=== PATIENT | female | born 1985 | race African-American/Black ===

== ENCOUNTER 2018-12-11 12:29 | Outpatient (CLI) | payer OTHER ==
[~2018-12-11 12:29] MED LIST: FERRIC CARBOXYMALTOSE 750 MG in NORMAL SALINE 250 ML IV PRN; NORMAL SALINE 250 ML IV PRN
[2018-12-11 12:47] VITALS: BP 133/98
== END 2018-12-11 14:30 | disposition home or self-care (01) ==
LOC: II 12:29 → 5TH 13:18 → II 14:30
PROVIDERS: ATTEND Internal Medicine Hematology & Oncology
PROC: 3E033GC Introduction of Other Therapeutic Substance into Peripheral Vein, Percutaneous Approach (ICD-10-PCS; principal; 2018-12-11)
DX: D50.9 Iron deficiency anemia, unspecified (principal); K90.9 Intestinal malabsorption, unspecified
CPT/HCPCS: 96367; J7050; J1439; 96365

== ENCOUNTER 2018-12-18 12:53 | Outpatient (CLI) | payer OTHER ==
[2018-12-18 13:17] VITALS: BP 130/77
== END 2018-12-18 15:15 | disposition home or self-care (01) ==
LOC: II 12:53 → 5TH 12:55 → II 15:15
PROVIDERS: ATTEND Internal Medicine Hematology & Oncology
PROC: 3E033GC Introduction of Other Therapeutic Substance into Peripheral Vein, Percutaneous Approach (ICD-10-PCS; principal; 2018-12-18)
DX: D50.9 Iron deficiency anemia, unspecified (principal); K90.9 Intestinal malabsorption, unspecified
CPT/HCPCS: 96367; J7050; J1439; 96365

== ENCOUNTER 2020-09-16 15:57 | Outpatient (CLI) | payer OTHER, MEDICAID ==
[2020-09-16] MEDS ORDERED: RINGERS SOLUTION,LACTATED 1,000 ML IV ONE (16:29)
[2020-09-16] MEDS ORDERED: RINGERS SOLUTION,LACTATED 1,000 ML IV PRN (16:29)
[2020-09-16] MEDS ORDERED: HYDROXYZINE PAMOATE 50 MG CAPSULE PO ONE (16:30)
[2020-09-16] MEDS ORDERED: HYDROXYZINE PAMOATE 50 MG CAPSULE ONE (18:03)
[2020-09-16 18:21] LABS: APPEARANCE,URINE CLEAR; BILIRUBIN,URINE NEGATIVE (NEGATIVE); COLOR,URINE YELLOW; GLUCOSE, URINE NEGATIVE (NEGATIVE); KETONES,URINE NEGATIVE (NEGATIVE); LEUKOCYTE ESTERASE,URINE NEGATIVE (NEGATIVE); NITRITE,URINE NEGATIVE (NEGATIVE); PROTEIN,URINE NEGATIVE (NEGATIVE); UROBILINOGEN,URINE NEGATIVE mg/dL (<2.0)
[2020-09-16 18:43] LABS: URINE AMPHETAMINES SCREEN NEGATIVE; URINE BARBITURATES SCREEN NEGATIVE; URINE BENZODIAZEPINES SCREEN NEGATIVE; URINE COCAINE SCREEN NEGATIVE; URINE MARIJUANA (THC) SCREEN NEGATIVE; URINE METHADONE SCREEN NEGATIVE; URINE PHENCYCLIDINE SCREEN NEGATIVE
[2020-09-16] MEDS ORDERED: BETAMET ACET/BETAMET NA INJ 6 MG/1 ML IM SCH (19:15)
[2020-09-16] MEDS ORDERED: BETAMET ACET/BETAMET NA INJ 6 MG/1 ML ONE (19:22)
[2020-09-16] MEDS ORDERED: NIFEDIPINE 30 MG TAB.ER.24 PO ONE (20:10)
--- NOTE | 2020-09-16 20:21 | RADIOLOGY REPORT (SQ) ---
NAME: JUAN MANUEL LONDONCHRISTYSHARI PROCEDURE: US BIOPHYSICAL PROFILE WITHOUT NON STRESS TEST ORDER DATE: 09/16/2020 5:11 PM ETL LEAD ACCESSION NUMBER: [id number] CLINICAL HISTORY and INDICATION: Gestational age of 33 weeks and six days. COMPARISON: None. TECHNIQUE: Transabdominal ultrasound of the pelvis with attention to the intrauterine was performed. FINDINGS: There is a single, viable intrauterine . presentation is cephalic. The placenta is anterior. Measured heart rate is 133 beats per minute. There is adequate amnionic fluid. Measured amniotic index is 14.5 cm. Biophysical profile was 8 out of 8: tone = 2 movement = 2 Amniotic fluid (single pocket > 2 cm in 2 perpendicular planes)= 2 breathing = 2 IMPRESSION: Biophysical profile, 8 out of 8. Single viable intrauterine . Cervical length is 4.8 cm.
[2020-09-16] MEDS ORDERED: NIFEDIPINE 30 MG TAB.ER.24 PO SCH (21:00)
--- NOTE | 2020-09-16 22:09 | Non Stress Test Report ---
Non Stress Test Datetime Report Generated by CPN: 09/16/2020 22:09 DEMOGRAPHIC Test Number: 1 EGA NST: 33.6 INDICATION Indication for Study (NST) Other: NR NST in office. Repeat NST VITAL SIGNS Temperature - NST: 97.8 Pulse - NST: 87 RESP - NST: 16 NBPSYS NST: 122 NBPDIA NST: 70 MONITORING Monitor Explained: Monitor Explained; Test Explained; Patient Verbalized Understanding Time on Monitor: 09/16/2020 16:18 Time off Monitor: 09/16/2020 21:37 NST Duration: 319 NST INTERVENTIONS NST Interventions: PO Hydration; Reposition Patient; For Biophysical Profile Physician Notified NST: Dr. Cartwright BABY A: [id number] BABY A Movement : Present Contraction Frequency : 3-5 FHR Baseline : 135 Accelerations : 15X15 Decelerations : None Variability : Moderate 6-25bpm NST Review: Questionable if Meets Criteria for Reactive NST NST Review and Verified By : Jazmyne Kirk, RN NST Results: Questionable NST COMMENTS NST Comments: BPP 8/8, Dr. Cartwright on unit reviewed strip multiple times NST REPORT Report Trigger: Send Report
== END 2020-09-16 22:03 | disposition home or self-care (01) ==
LOC: LC 15:57
PROVIDERS: ATTEND Obstetrics & Gynecology
DX: O60.03 Preterm labor without delivery, third trimester (principal); O09.523 Supervision of elderly multigravida, third trimester; Z3A.33 33 weeks gestation of pregnancy; Z88.6 Allergy status to analgesic agent
CPT/HCPCS: 59025; 81001; 80307; 76819; J0702

== ENCOUNTER 2020-09-17 19:33 | Outpatient (CLI) | payer OTHER, MEDICAID ==
[2020-09-17] MEDS ORDERED: BETAMET ACET/BETAMET NA INJ 6 MG/1 ML ONE (19:38)
[2020-09-17] MEDS ORDERED: BETAMET ACET/BETAMET NA INJ 6 MG/1 ML IM ONE (19:41)
== END 2020-09-17 19:46 | disposition home or self-care (01) ==
LOC: LC 19:33
PROVIDERS: ATTEND Student in an Organized Health Care Education/Training Program
DX: O60.03 Preterm labor without delivery, third trimester (principal); O09.523 Supervision of elderly multigravida, third trimester; Z3A.33 33 weeks gestation of pregnancy; Z88.6 Allergy status to analgesic agent
CPT/HCPCS: 59025; 96372; J0702

== ENCOUNTER 2020-09-27 10:46 | Outpatient (CLI) | payer OTHER, MEDICAID ==
--- NOTE | 2020-09-27 12:11 | Non Stress Test Report ---
Non Stress Test Datetime Report Generated by CPN: 09/27/2020 12:10 DEMOGRAPHIC EGA NST: 35.3 INDICATION Indication for Study (NST) Other: Repeat NST WHA MONITORING Monitor Explained: Monitor Explained; Test Explained; Patient Verbalized Understanding Time on Monitor: 09/27/2020 10:56 Time off Monitor: 09/27/2020 11:51 NST Duration: 55 NST INTERVENTIONS Physician Notified NST: Dr Cartwright/N Rocha CNM BABY A: [id number] BABY A Movement : Present Contraction Frequency : 0 FHR Baseline : 135 Accelerations : 15X15 Decelerations : None Variability : Moderate 6-25bpm NST Review: Meets Criteria for Reactive NST NST Review and Verified By : Susan Camp RNC NST Results: Reactive NST REPORT Report Trigger: Send Report
== END 2020-09-27 11:57 | disposition home or self-care (01) ==
LOC: LC 10:46
PROVIDERS: ATTEND Obstetrics & Gynecology
DX: Z34.83 Encounter for supervision of other normal pregnancy, third trimester (principal); Z3A.35 35 weeks gestation of pregnancy
CPT/HCPCS: 59025

== ENCOUNTER 2020-10-09 08:00 | Outpatient (CLI) | payer OTHER, MEDICAID ==
[2020-10-09 09:12] LABS: 24 HOUR URINE PROTEIN RESULT 182 mg/day (42-225); URINE PROTEIN 9.5 mg/dL (<12)
== END 2020-10-09 10:00 | disposition home or self-care (01) ==
LOC: LC 08:00
PROVIDERS: ATTEND Obstetrics & Gynecology
DX: O16.3 Unspecified maternal hypertension, third trimester (principal); Z3A.37 37 weeks gestation of pregnancy
CPT/HCPCS: 59025; 84156

== ENCOUNTER 2020-10-13 14:44 | Outpatient (CLI) | payer OTHER, MEDICAID ==
--- NOTE | 2020-10-13 15:04 | Non Stress Test Report ---
Non Stress Test Datetime Report Generated by CPN: 10/13/2020 15:03 DEMOGRAPHIC EGA NST: 37.1 INDICATION Indication for Study (NST) Other: labor check VITAL SIGNS Temperature - NST: 98.5 Pulse - NST: 80 RESP - NST: 16 NBPSYS NST: 137 NBPDIA NST: 76 MONITORING Monitor Explained: Monitor Explained; Test Explained; Patient Verbalized Understanding Time on Monitor: 10/09/2020 09:27 Time off Monitor: 10/09/2020 09:58 NST Duration: 31 NST INTERVENTIONS NST Interventions: None Physician Notified NST: Dr Cartwright BABY A: [id number] BABY A Movement : Present Contraction Frequency : none FHR Baseline : 135 Accelerations : 15X15 Decelerations : None Variability : Moderate 6-25bpm NST Review: Meets Criteria for Reactive NST NST Review: Meets Criteria for Reactive NST NST Review and Verified By : Emely Orlando RN NST Results: Reactive NST Results: Reactive NST REPORT Report Trigger: Send Report
--- NOTE | 2020-10-13 17:27 | RADIOLOGY REPORT (SQ) ---
EXAM DESCRIPTION: U/S PROFILE W/O STRESS IMAGES COMPLETED DATE/TIME: 10/13/2020 5:11 pm REASON FOR STUDY: noreactive NST COMPARISON: None. TECHNIQUE: Limited swanson-scale realtime and static images of the fetus to measure specified parameter s. LIMITATIONS: None. FINDINGS: HEART RATE: 128 beats per minute. SHABANA: 15 point to cm. MVP: 5.5 cm. BREATHING MOVEMENT: 2 points. MOVEMENT: 2 points. POSTURE AND TONE: 2 points. QUALITATIVE SHABANA: 2 points. OTHER: No other significant finding. IMPRESSION: BIOPHYSICAL PROFILE: 06/05. Trimester of : Third - 28 weeks to delivery COMMENT: BREATHING MOVEMENTS: 2 POINTS: PRESENT 0 POINTS: ABSENT MOTION: 2 POINTS: PRESENT 0 POINTS: ABSENT TONE: 2 POINTS: PRESENT 0 POINTS: ABSENT AMNIOTIC FLUID VOLUME: 2 POINTS: LARGEST POCKET GREATER THAN 2 CM DEPTH. 0 POINTS: NO POCKET OF 2 CM. TECHNICAL DOCUMENTATION: JOB ID: [id number] 2010 [employer]- All Rights Reserved Reading location - IP/workstation name: [email or web address]
== END 2020-10-13 18:01 | disposition home or self-care (01) ==
LOC: LC 14:44
PROVIDERS: ATTEND Obstetrics & Gynecology
DX: O09.523 Supervision of elderly multigravida, third trimester (principal); Z3A.37 37 weeks gestation of pregnancy; Z88.6 Allergy status to analgesic agent; Z91.018 Allergy to other foods
CPT/HCPCS: 59025; 76819

== ENCOUNTER 2020-10-15 04:53 | Inpatient (IN) | payer OTHER, MEDICAID ==
[2020-10-15 05:51] LABS: APPEARANCE,URINE SLIGHTLY-CLOUDY; BILIRUBIN,URINE NEGATIVE (NEGATIVE); COLOR,URINE YELLOW; GLUCOSE, URINE NEGATIVE (NEGATIVE); KETONES,URINE NEGATIVE (NEGATIVE); LEUKOCYTE ESTERASE,URINE NEGATIVE (NEGATIVE); NITRITE,URINE NEGATIVE (NEGATIVE); PROTEIN,URINE NEGATIVE (NEGATIVE); URINE SPECIFIC GRAVITY 1.013; UROBILINOGEN,URINE NEGATIVE mg/dL (<2.0)
[2020-10-15] MEDS ORDERED: CEFAZOLIN 2 GM/D5W RTU 2 GM/50 ML RTUPB IV PRN (06:03)
[2020-10-15 06:05] LABS: ABSOLUTE BASOPHILS # (AUTO) 0.1 10^3/uL (0.0-0.2); ABSOLUTE EOSINOPHILS # (AUTO) 0.1 10^3/uL (0.0-0.6); ABSOLUTE LYMPHOCYTES (AUTO) 2.4 10^3/uL (0.5-4.7); ABSOLUTE MONOCYTES (AUTO) 0.7 10^3/uL (0.1-1.4); ABSOLUTE NEUT (AUTO) 4.9 10^3/uL (1.7-8.2); BASOPHILS % (AUTO) 1.1 % (0-2); EOSINOPHILS % (AUTO) 1.1 % (0-6); HEMATOCRIT 27.4 % (36.0-47.0); HEMOGLOBIN 9.2 g/dL (12.0-15.5); LYMPHOCYTES % (AUTO) 29.1 % (13-45); MEAN CORPUSCULAR HEMOGLOBIN 23.4 pg (27.0-33.4); MEAN CORPUSCULAR HGB CONC 33.4 g/dL (32.0-36.0); MEAN CORPUSCULAR VOLUME 70 fl (80-97); MONOCYTES % (AUTO) 8.3 % (3-13); PLATELET COUNT 246 10^3/uL (150-450); RED BLOOD COUNT 3.92 10^6/uL (3.72-5.28); RED CELL DISTRIBUTION WIDTH 18.4 % (11.5-14.0); SEGMENTED NEUTROPHILS % (AUTO) 60.4 % (42-78); TOTAL CELLS COUNTED % (AUTO) 100 %; WHITE BLOOD COUNT 8.1 10^3/uL (4.0-10.5)
[2020-10-15 06:06] LABS: URINE AMPHETAMINES SCREEN NEGATIVE; URINE BARBITURATES SCREEN NEGATIVE; URINE BENZODIAZEPINES SCREEN NEGATIVE; URINE COCAINE SCREEN NEGATIVE; URINE MARIJUANA (THC) SCREEN NEGATIVE; URINE METHADONE SCREEN NEGATIVE; URINE PHENCYCLIDINE SCREEN NEGATIVE
[2020-10-15] MEDS ORDERED: TRANEXAMIC ACID INJ/PF 1,000 MG/10 ML SDV ONE (07:29)
[2020-10-15] MEDS ORDERED: MISOPROSTOL 0.2 MG TABLET ONE (07:29)
[2020-10-15] MEDS ORDERED: CITRIC ACID/SODIUM CITRATE ORAL SOLN 15 ML UDCUP ONE (07:29)
[2020-10-15] MEDS ORDERED: CEFAZOLIN 2 GM/D5W RTU 2 GM/50 ML RTUPB IV ONE (07:30)
[2020-10-15] MEDS ORDERED: METHYLERGONOVINE MALEATE INJ/PF 0.2 MG/1 ML AMPULE ONE (07:30)
[2020-10-15] MEDS ORDERED: RINGERS SOLUTION,LACTATED 1,000 ML IV PRN ×2 (07:38→10:57)
[2020-10-15] MEDS ORDERED: ACETAMINOPHEN 1,000 MG/100 ML RTUPB IV ONE (07:39)
[2020-10-15] MEDS ORDERED: MIDAZOLAM 2 MG/2 ML INJ ONE (07:39)
[2020-10-15] MEDS ORDERED: KETOROLAC TROMETHAMINE INJ/PF 30 MG/1 ML SDV ONE (07:39)
[2020-10-15] MEDS ORDERED: OXYTOCIN 10 UNIT/ML VIAL ONE (07:39)
[2020-10-15] MEDS ORDERED: GLYCOPYRROLATE INJ 0.4 MG/2 ML VIAL ONE (07:39)
[2020-10-15] MEDS ORDERED: FENTANYL CITRATE INJ/PF 100 MCG/2 ML AMPUL ONE ×2 (07:39→10:44)
[2020-10-15] MEDS ORDERED: OXYTOCIN/0.9 % SODIUM CHLORIDE 30 UNIT/500 ML RTUINJ ONE (07:39)
[2020-10-15] MEDS ORDERED: PHENYLEPHRINE HCL INJ/PF 10 MG/1 ML SDV ONE (07:39)
[2020-10-15] MEDS ORDERED: ONDANSETRON HCL INJ/PF 4 MG/2 ML SDV ONE (07:40)
[2020-10-15] MEDS ORDERED: RINGERS SOLUTION,LACTATED 1,000 ML IV ONE (07:45)
[2020-10-15] MEDS ORDERED: NORMAL SALINE 250 ML IV PRN ×2 (08:07)
[2020-10-15] MEDS ORDERED: LIDOCAINE 1% INJ-PF (10 MG/ML) 30 ML SDV ONE (08:22)
[2020-10-15] MEDS ORDERED: DIPHENHYDRAMINE HCL 50 MG/ML VIAL IV PRN (08:53)
[2020-10-15] MEDS ORDERED: PROMETHAZINE HCL INJ 25 MG/1 ML VIAL IV PRN ×3 (08:53→10:57)
[2020-10-15] MEDS ORDERED: FENTANYL CITRATE INJ/PF 100 MCG/2 ML AMPUL IV PRN ×2 (08:53)
[2020-10-15] MEDS ORDERED: MEPERIDINE HCL/PF INJ 25 MG/1 ML DISP.SYRIN IV PRN (08:53)
[2020-10-15] MEDS ORDERED: ONDANSETRON HCL INJ/PF 4 MG/2 ML SDV IV PRN (08:53)
[2020-10-15] MEDS: FENTANYL CITRATE INJ/PF 100 MCG/2 ML AMPUL IV PRN ×2 (10:47→11:29)
[2020-10-15] MEDS ORDERED: ACETAMINOPHEN 325 MG TABLET PO PRN (10:57)
[2020-10-15] MEDS ORDERED: MEASLES,MUMPS&RUBELLA VACC/PF 0.5 ML VIAL SUBCUT PRN (10:57)
[2020-10-15] MEDS ORDERED: ACETAMINOPHEN 1,000 MG/100 ML RTUPB IV PRN (10:57)
[2020-10-15] MEDS ORDERED: OXYTOCIN/0.9 % SODIUM CHLORIDE 30 UNIT/500 ML RTUINJ IV PRN (10:57)
[2020-10-15] MEDS ORDERED: OXYCODONE-ACETAMINOPHEN 5-325 MG TABLET PO PRN (10:57)
[2020-10-15] MEDS ORDERED: DIPH/PERTUSS(ACELL)/TETANUS VAC/PF 0.5 ML SYR (>=10YO) IM PRN (10:57)
--- NOTE | 2020-10-15 10:57 | Brief Operative Note ---
BRIEF OPERATIVE REPORT DATE OF SURGERY: 10/15/20 TIME OF SURGERY: 08:50 PREOPERATIVE DIAGNOSIS: 38+0ega, , Fibroid uterus, Anemia, GBS positive, possible head abnormality, polyhydramnios, AMA, Hypertrophic Scar POSTOPERATIVE DIAGNOSIS: DA - delivered SURGEON: RANDOLPH MCDANIELS FINDINGS: VFI delivered at 0851, Apgars 8/9, weight 8# (3635g), Multiple fibroids (large posterior approx 6cm and 4cm lower uterine segment, multiple small 2cm subserosal), normal bilateral tubes/ovaries, Very thin lower uterine segment and 4cm anterior fibroid just above CECE incision. QBL 930ml, EBL 700ml, IVF 1500ml, UOP 300ml COMPLICATIONS: very thin lower uterine segment, placenta implanted over anterior fibroid just above CECE incision ESTIMATED BLOOD LOSS: 700ml TISSUE REMOVED OR ALTERED: Placenta and cord - sent to pathology TECHNICAL PROCEDURE: Repeat section, Scar revision
[2020-10-15] MEDS: OXYCODONE-ACETAMINOPHEN 5-325 MG TABLET PO PRN ×2 (12:37→19:52)
--- NOTE | 2020-10-15 13:02 | Birth Certificate Data ---
Cert Data Datetime Report Generated by CPN: 10/15/2020 13:02 CERTIFICATE DATA Delivery Provider: Solange Dean (09/16/2020 16:09:Rita Abisai, RN) RISK FACTORS IN THIS 49f. Previous Cesareans: 2 (09/16/2020 16:09:Annamaria Baidy, RN) Mother's Height 50b. Height Inches: 63 (10/15/2020 06:13:QS system process) Mother's Weight 51b. Weight at Delivery (lbs): 436 (10/15/2020 06:13:QS system process) Infections Present/Treated Results this Hospital Visit: Negative (09/16/2020 16:09:Rita Barone RN) 53e. Hepatitis C: Negative (09/16/2020 16:09:Rita Barone RN) 53h. Mother Tested for HBsAG: Yes (09/16/2020 16:09:Rita Barone RN) 53i. Date Tested: 04/15/2020 00:00 (09/16/2020 16:09:Rita Barone RN) 53j. Test Result: Negative (09/16/2020 16:09:Rita Barone RN) Onset of Labor 56a. PROM >12 Hrs: 0.00 (09/16/2020 16:09:QS system process) 57a. Induction of Labor: N/A (09/16/2020 16:09:Rita Barone RN) 57c. Non-Vertex Presentation A: Vertex (09/16/2020 16:09:Rita Barone RN) 57d. Steroids - Lung Mat: None (09/16/2020 16:09:Rita Barone RN) 57d. Steroids - Lung Mat: Celestone 12mg IM - Dose 2 (Annotations: given in right gluteus eleuterio, site wnl ) (09/17/2020 19:43:Araseli Wilkinson RN) 57d. Steroids - Lung Mat: Not Applicable (09/16/2020 16:09:Rita Barone RN) 57e. Antibiotics During Labor: 10/15/2020 08:30 (09/16/2020 16:09:Rita Barone RN) 57f. Mat Ch[place] or Temp >100.4: 98.1 (09/16/2020 16:09:Rita Barone RN) 57g. Moderate/Heavy Meconium: Clear (09/16/2020 16:09:Rita Barone RN) 57h. Intolerance of Labor: Repeat Elective (09/16/2020 16:09:Rita Barone RN) : N/A (09/16/2020 16:09:Rita Barone RN) 57i. Epidural/Spinal Anesthesia: Intrathecal (09/16/2020 16:09:Rita Barone RN) Method of Delivery 58a. Forceps - Unsuccessful A: N/A (09/16/2020 16:09:Rita Barone RN) 58b. Vacuum - Unsuccessful A: N/A (09/16/2020 16:09:Rita Barone RN) 58c. Presentation at 58c. Presentation at - A : Vertex (09/16/2020 16:09:Rita Barone RN) 58c. Presentation at - A : N/A (09/16/2020 16:09:Rita Barone RN) 58c. Presentation at - A : Cephalic (09/16/2020 16:09:Rita Barone RN) Final Route and Method of Del 58d. Baby A Route/Delivery: (09/16/2020 16:09:Rita Barone RN) 58e. Trial of Labor Attempted: No (09/16/2020 16:09:Rita Barone RN) 58e. Trial of Labor Attempted A: N/A (09/16/2020 16:09:Rita Barone RN) Birthweight Baby A: 3635 (09/16/2020 16:09:Rita Barone RN) 60a. Pounds : 8 (09/16/2020 16:09:QS system process) 60b. Ounces: 0 (09/16/2020 16:09:QS system process) 61. GA at Delivery Baby A: 38.0 (09/16/2020 16:09:Rita Barone RN) : Early Term- 37- 38.6 Weeks (09/16/2020 16:09:QS system process) 62a. 5 Minute Baby A: 9 (09/16/2020 16:09:QS system process)
--- NOTE | 2020-10-15 13:02 | Delivery Summary ---
Del Sum A-C Datetime Report Generated by CPN: 10/15/2020 13:01 DELIVERY PERSONNEL DELIVERY PERSONNEL: [id number] Delivery Doctor:: Solange Dean MD DISTILLER:: Justin Normile, DISTILLER Insurance Marketing Rep:: Rita Barone RN Neonatal Nurse Practitioner:: DANILO Gupta Route Delivery Supervisor/MATERIALS DEVELOPMENT ENGINEER: [facility] [place] Route Delivery Supervisor/MATERIALS DEVELOPMENT ENGINEER: Zoë Pinto, [facility] MATERNAL INFORMATION Delivery Anesthesia: Spinal Medications After Delivery: Pitocin 30 Units in 500ml NS/D5W; Pitocin Drip 20 Units/1000ml NSS Meds After Delivery Comment: Pitocin 20 units in 1000mL LR per DISTILLER, followed by 50units in 500mL NS in PACU Delivery QBL: 930 Maternal Complications: Other Complication Details: GHTN, uterine fibroids LABOR SUMMARY EDC: 10/29/2020 00:00 No. Babies in Womb: 1 Attempted: No Labor Anesthesia: Intrathecal LABOR INFORMATION Reason for Induction: Not Applicable Oxytocin: N/A Group B Beta Strep: positive Antibiotics # of Doses: 1 Antibiotics Time of Last Dose: 10/15/2020 08:30 Name of Antibiotic Given: Ancef 2gm Steroids Given: None Reason Steroids Not Administered: Not Applicable MEMBRANES Membranes Rupture Method: Artificial Rupture of Membranes: 10/15/2020 08:51 Length of Rupture (hr): 0.00 Amniotic Fluid Color: Clear Amniotic Fluid Amount: Moderate Amniotic Fluid Odor: None STAGES OF LABOR Stage 3 hr: 0 Stage 3 min: 1 VAGINAL DELIVERY Laceration Extension #1: N/A Sponge Count Correct: N/A CSECTION DELIVERY Primary Indication: Repeat Elective Secondary Indication: N/A CSection Urgency: Scheduled CSection Incidence: Repeat Labor: No Labor Elective: Elective CSection Incision: Lower Uterine Transverse BABY A INFORMATION Delivery Date/Time: 10/15/2020 08:51 Method of Delivery: Nurse Controlled Delivery: No Born in Route : No : N/A Forceps: N/A Vacuum Extraction: N/A Shoulder Dystocia : No PRESENTATION/POSITION BABY A Presentation: Cephalic Cephalic Presentation: Vertex Breech Presentation: N/A PLACENTA INFORMATION BABY A Placenta Delivery Time : 10/15/2020 08:52 Placenta Method of Delivery: Manual Removal Placenta Status: Delivered SCORES BABY A Heart Rate 1 min: >100 bpm Resp Effort 1 min: Good Cry Reflex Irritability 1 min: Cough or Sneeze or Pulls Away Muscle Tone 1 min: Active Motion Color 1 min: Blue/Pale Resuscitation Effort 1 min: Tactile Stimulation SCORE 1 MIN: 8 Heart Rate 5 min: >100 bpm Resp Effort 5 min: Good Cry Reflex Irritability 5 min: Cough or Sneeze or Pulls Away Muscle Tone 5 min: Active Motion Color 5 min: Body Miner, Extremities Blue Resuscitation Effort 5 min: Tactile Stimulation SCORE 5 MIN: 9 INFANT INFORMATION BABY A Gestational Age at Delivery: 38.0 Gestational Status: Early Term- 37- 38.6 Weeks Infant Outcome : Liveborn Infant Condition : Stable Infant Sex: Female IDENTIFICATION BABY A Infant Verification Date/Time: 10/15/2020 08:55 ID Band Number: [id number] Mother's Name Verified: Yes Infant RN Verifying : M Abisai Additional Verifying Personnel: A. [place] WEIGHT/LENGTH BABY A Birthweight (gm): 3635 Infant Weight (lb): 8 Infant Weight (oz): 0 Length (in): 19.50 Length (cm): 49.53 CORD INFORMATION BABY A No. Cord Vessels: 3 Nuchal Cord : N/A Cord Blood Taken: Yes-For Eval (Mom's Blood Type - or O+) Infant Suction: None
[2020-10-15] MEDS: HYDROMORPHONE HCL INJ/PF 2 MG/ML AMPULE IV PRN ×2 (16:29→22:24)
[2020-10-15] MEDS: DOCUSATE SODIUM 100 MG CAPSULE PO SCH (17:45)
--- NOTE | 2020-10-15 18:39 | Operative Report ---
Operative Report DATE OF SURGERY: 10/15/20 PREOPERATIVE DIAGNOSIS: 38+0ega, , Fibroid uterus, Anemia, GBS positive, possible head abnormality, polyhydramnios, AMA, Hypertrophic Scar POSTOPERATIVE DIAGNOSIS: DA - delivered OPERATION: Repeat section with Scar revision SURGEON: RANDOLPH MCDANIELS ANESTHESIA: Spinal TISSUE REMOVED OR ALTERED: placenta and cord COMPLICATIONS: very thin lower uterine segment, placenta implanted over anterior fibroid just above CECE incision ESTIMATED BLOOD LOSS: 700 QUANTITATIVE BLOOD LOSS: 930 INTRAOPERATIVE FINDINGS: VFI delivered at 0851, Apgars 8/9, weight 8# (3635g), Multiple fibroids (large posterior approx 6cm and 4cm lower uterine segment, multiple small 2cm subserosal), normal bilateral tubes/ovaries, Very thin lower uterine segment and 4cm anterior fibroid just above CECE incision. QBL 930ml, EBL 700ml, IVF 1500ml, UOP 300ml PROCEDURE: Anesthesia provider: [Sourav SWENSON, Justin Lopez CRNA] Urine output: [300ml] IV fluids: [1500ml] Indications: [34yo at 38+0ega presents for Repeat section. She has had 2 prior sections. She declines BTL and desires COCPs likely for contraception . Her is complicated by CHTN vs GHTN, fibroids, AMA, Anemia, and Polyhydramnios. The risks, benefits, and alternatives were reviewed and she desires to proceed with planned procedure. We also reviewed the risks of susbsequent with having had now 3 sections and fibroids etc. She desires to proceed with planned Repeat section.] Procedure: The patient was taken to the operating room where spinal anesthesia was obtained and found to be adequate. She was then prepped and draped in the normal sterile fashion and placed in the dorsal supine position with a leftward tilt. The prior Pfannenstiel skin incision was then excised and carried through to the underlying layers of the fascia with the scalpel. The fascia was incised in the midline and the incision extended laterally with the Hayden scissors. The superior aspect of the fascial incision was then grasped with Isela clamps elevated and the underlying rectus muscles dissected off [bluntly]. Attention was then turned to the inferior aspect of the fascial incision which in a sim ilar fashion was grasped, tented up with Isela clamps, and the rectus muscles dissected off [bluntly]. The rectus muscles were then in the midline and the peritoneum at the amount identified and entered [bluntly]. The peritoneal incision was then extended superiorly and inferiorly with good visualization of the bladder. The bladder blade was inserted and the vesicouterine peritoneum identified grasped with Bahamian pickups and entered sharply with the Metzenbaum scissors. This incision was then extended laterally with the Metzenbaum scissors and a bladder flap created digitally. Multiple large fibroids noted including one 4cm just above very then lower uterine segment incision. The bladder blade was then reinserted and the lower uterine segment incised in a transverse fashion bluntly. The uterine incision was then extended bluntly. The bladder blade was removed and the 's head was delivered from cephalic presentation atraumatically. The nose and mouth were suctioned and the cord doubly clamped and cut. And the was handed off to waiting pediatricians. The placenta was then delivered spontaneously and the uterus exteriorized and cleared of all clots and debris. The uterine incision was then repaired with 1- 0 Vicryl in a running locked fashion. A second layer of the same suture was used to obtain hemostasis via imbrication of the initial layer. The bladder flap was then repaired with 3-0 chromic in a running fashion. The uterus was returned to the patient's abdomen and surgicel was placed for additional hemostasis. The gutters were cleared of all clots and debris. All operative sites were noted to be hemostatic. The fascia was reapproximated with 0 Vicryl in a running fashion from each lateral edge to the midline. The skin was closed with 3-0 Monocryl in a running subcuticular fashion with overlying Dermabond for additional dressing as well as wound closure. The patient tolerated the procedure well. Sponge lap needle and instrument counts are correct times 2. 2 g of Ancef were given prior to skin incision. The patient was taken to the recovery area awake and in stable condition.
[2020-10-16] MEDS: OXYCODONE-ACETAMINOPHEN 5-325 MG TABLET PO PRN ×3 (05:01→15:44)
[2020-10-16 06:51] LABS: HEMATOCRIT 24.6 % (36.0-47.0); HEMOGLOBIN 8.4 g/dL (12.0-15.5); MEAN CORPUSCULAR HEMOGLOBIN 23.3 pg (27.0-33.4); MEAN CORPUSCULAR HGB CONC 33.9 g/dL (32.0-36.0); MEAN CORPUSCULAR VOLUME 69 fl (80-97); PLATELET COUNT 275 10^3/uL (150-450); RED BLOOD COUNT 3.59 10^6/uL (3.72-5.28); RED CELL DISTRIBUTION WIDTH 18.2 % (11.5-14.0)
[2020-10-16 06:52] LABS: WHITE BLOOD COUNT 16.3 10^3/uL (4.0-10.5)
[2020-10-16] MEDS: DOCUSATE SODIUM 100 MG CAPSULE PO SCH ×2 (10:35→17:22)
[2020-10-16] MEDS: PRENATAL VITAMIN W DHA CAPSULE PO SCH (10:43)
[2020-10-16] MEDS: SIMETHICONE 80 MG TAB.CHEW PO PRN (11:27)
--- NOTE | 2020-10-16 11:29 | PDOC PROGRESS REPORT ---
Subjective-OB Progress Note for:: 10/16/20 Subjective: reports bleeding minimal. c/o pain, CNM requested simethicone for abd distension for pt Physical Exam (OB) Vital Signs: Temp Pulse Resp BP Pulse Ox 97.6 F 102 H 18 129/83 H 98 10/16/20 08:12 10/16/20 08:12 10/16/20 08:12 10/16/20 08:12 10/16/20 08:12 Intake & Output 10/15/20 10/16/20 10/17/20 06:59 06:59 06:59 Output Total 1770 Balance -1770 Weight 198 kg - Dressing Removed: Yes Incision: Open, Well Approximated - Maternal Morbidity 59. Maternal Morbidity (serious complications experinced by the mother associated with labor and delivery: None of the above - Abdomen Description: Tender, Soft Hernia Present: No Bowel Sounds: Hyperactive Fundal Description: Firm, Midline Fundal Height: u/u - u/2 - Abdominal Distension: Distended Tenderness: Tender - Extremities Lower extremities: Ana's sign - neg Calf: Normal, Nontender Objective-Diagnostic Laboratory: 10/16/20 06:04 10/16/20 06:04 WBC 16.3 H D RBC 3.59 L Hgb 8.4 L Hct 24.6 L MCV 69 L MCH 23.3 L MCHC 33.9 RDW 18.2 H Plt Count 275 Assessment and Plan(PN) - Assessment and Plan (1) Advanced maternal age (AMA) in Is this a current diagnosis for this admission?: Yes (2) Chronic hypertension affecting Is this a current diagnosis for this admission?: Yes (3) History of section Is this a current diagnosis for this admission?: Yes (4) Polyhydramnios affecting Is this a current diagnosis for this admission?: Yes (5) S/P repeat low transverse Is this a current diagnosis for this admission?: Yes (6) Uterine fibroids in , delivered with condition Is this a current diagnosis for this admission?: Yes - Time Spent with Patient Time with patient: Less than 15 minutes Medications reviewed and adjusted accordingly: Yes - Disposition Anticipated Discharge Disposition: Home, Self Care Anticipated Discharge Timeframe: within 48 hours
[2020-10-16] MEDS: HYDROMORPHONE HCL INJ/PF 2 MG/ML AMPULE IV PRN (20:56)
[2020-10-17] MEDS: OXYCODONE-ACETAMINOPHEN 5-325 MG TABLET PO PRN ×5 (01:17→19:46)
[2020-10-17] MEDS: SIMETHICONE 80 MG TAB.CHEW PO PRN ×2 (01:20→09:38)
[2020-10-17] MEDS: DOCUSATE SODIUM 100 MG CAPSULE PO SCH ×2 (09:32→18:31)
[2020-10-17] MEDS: PRENATAL VITAMIN W DHA CAPSULE PO SCH (09:32)
--- NOTE | 2020-10-17 10:31 | PDOC PROGRESS REPORT ---
Subjective-OB Progress Note for:: 10/17/20 Subjective: states she has still not passed gas. states her pain level will not go below a 3/5. states she has been walking in the [place] and in the room. states bleeding is minimal. abdomen is distended-discussed with RN who will make sure she walks today. Physical Exam (OB) Vital Signs: Temp Pulse Resp BP Pulse Ox 97.9 F 87 16 127/75 H 99 10/17/20 09:13 10/17/20 09:13 10/17/20 09:13 10/17/20 09:13 10/17/20 09:13 Intake & Output 10/16/20 10/17/20 10/18/20 06:59 06:59 06:59 Intake Total 400 Output Total 1770 Balance -1770 400 - Dressing Removed: Yes Incision: Open, Well Approximated Closure Type: Surgical Glue - Maternal Morbidity 59. Maternal Morbidity (serious complications experinced by the mother associated with labor and delivery: None of the above - Abdomen Description: Tender, Soft, Round, Distended Hernia Present: No Fundal Description: Firm, Midline Fundal Height: u/u - u/2 - Abdominal Distension: Distended Tenderness: Nontender, Guarding - no - Extremities Lower extremities: Ana's sign - neg Calf: Normal, Nontender Objective-Diagnostic Laboratory: 10/16/20 06:04 Assessment and Plan(PN) - Assessment and Plan (1) Advanced maternal age (AMA) in Is this a current diagnosis for this admission?: Yes (2) Chronic hypertension affecting Is this a current diagnosis for this admission?: Yes (3) History of section Is this a current diagnosis for this admission?: Yes (4) Polyhydramnios affecting Is this a current diagnosis for this admission?: Yes (5) S/P repeat low transverse Is this a current diagnosis for this admission?: Yes (6) Uterine fibroids in , delivered with condition Is this a current diagnosis for this admission?: Yes - Time Spent with Patient Time with patient: Less than 15 minutes Medications reviewed and adjusted accordingly: Yes - Disposition Anticipated Discharge Disposition: Home, Self Care Anticipated Discharge Timeframe: within 24 hours
[2020-10-17] MEDS ORDERED: MAGNESIUM HYDROXIDE SUSP 30 ML UDCUP PO ONE (10:45)
[2020-10-17] MEDS ORDERED: MAGNESIUM HYDROXIDE SUSP 30 ML UDCUP ONE (18:34)
[2020-10-18] MEDS: OXYCODONE-ACETAMINOPHEN 5-325 MG TABLET PO PRN ×2 (00:27→08:12)
[2020-10-18] MEDS: SIMETHICONE 80 MG TAB.CHEW PO PRN ×2 (00:31→08:12)
--- NOTE | 2020-10-18 09:39 | PDOC DISCHARGE SUMMARY ---
Impression - Admit/DC Date/PCP Admission Date/Primary Care Provider: 10/15/20 04:53 DAMIEN ENGLISH MD Discharge Date: 10/18/20 - POD #3, doing well, no complaints, denies headache, UOB, voiding, O+. Rubella Immune, breast and bottlefeeding - Discharge Diagnosis (1) Advanced maternal age (AMA) in Is this a current diagnosis for this admission?: Yes (2) Chronic hypertension affecting Is this a current diagnosis for this admission?: Yes (3) History of section Is this a current diagnosis for this admission?: Yes (4) Polyhydramnios affecting Is this a current diagnosis for this admission?: Yes (5) S/P repeat low transverse Is this a current diagnosis for this admission?: Yes (6) Uterine fibroids in , delivered with condition Is this a current diagnosis for this admission?: Yes - Additional Information Resuscitation Status: Full Code Discharge Diet: As Tolerated, Regular Discharge Activity: Activity As Tolerated, No Driving, No Lifting Over 10 Pounds, Pelvic Rest Referrals: [facility] [Provider Group] (Please call and make an appointment with [facility] for in 1 week, for an incision check. Call with any questions or concerns. ) Prescriptions: Oxycodone HCl/Acetaminophen [Percocet 5-325 mg Tablet] 1 tab PO Q4HP PRN #30 tablet PRN Reason: Pain Scale Of 4 Home Medications: Pnv 102/Iron/Folate 1/Dss/Dha [Vitafol Fe+ Docusate Combo Pck] 1 tab PO DAILY 09/16/20 Oxycodone HCl/Acetaminophen [Percocet 5-325 mg Tablet] 1 tab PO Q4HP PRN #30 tablet 10/18/20 HPI Reason(s) for Admission: Ceasarean Section-Repeat Procedures: Ultrasound Intrapartum Procedure(s): : Low Cervical, Transverse Hospital Course 59. Maternal Morbidity (serious complications experinced by the mother associated with labor and delivery: None of the above Results Laboratory Results: WBC 16.3 10^3/uL (4.0-10.5) H D 10/16/20 06:04 RBC 3.59 10^6/uL (3.72-5.28) L 10/16/20 06:04 Hgb 8.4 g/dL (12.0-15.5) L 10/16/20 06:04 Hct 24.6 % (36.0-47.0) L 10/16/20 06:04 MCV 69 fl (80-97) L 10/16/20 06:04 MCH 23.3 pg (27.0-33.4) L 10/16/20 06:04 MCHC 33.9 g/dL (32.0-36.0) 10/16/20 06:04 RDW 18.2 % (11.5-14.0) H 10/16/20 06:04 Plt Count 275 10^3/uL (150-450) 10/16/20 06:04 Lymph % (Auto) 29.1 % (13-45) 10/15/20 05:45 [place] % (Auto) 8.3 % (3-13) 10/15/20 05:45 Eos % (Auto) 1.1 % (0-6) 10/15/20 05:45 Baso % (Auto) 1.1 % (0-2) 10/15/20 05:45 Absolute Neuts (auto) 4.9 10^3/uL (1.7-8.2) 10/15/20 05:45 Absolute Lymphs (auto) 2.4 10^3/uL (0.5-4.7) 10/15/20 05:45 Absolute Monos (auto) 0.7 10^3/uL (0.1-1.4) 10/15/20 05:45 Absolute Eos (auto) 0.1 10^3/uL (0.0-0.6) 10/15/20 05:45 Absolute Basos (auto) 0.1 10^3/uL (0.0-0.2) 10/15/20 05:45 Seg Neutrophils % 60.4 % (42-78) 10/15/20 05:45 Urine Color YELLOW 10/15/20 05:12 Urine Appearance SLIGHTLY-CLOUDY 10/15/20 05:12 Urine pH 7.0 (5.0-9.0) 10/15/20 05:12 Ur Specific [place] 1.013 10/15/20 05:12 Urine Protein NEGATIVE mg/dL (NEGATIVE) 10/15/20 05:12 Urine Glucose (UA) NEGATIVE mg/dL (NEGATIVE) 10/15/20 05:12 Urine Ketones NEGATIVE mg/dL (NEGATIVE) 10/15/20 05:12 Urine Blood NEGATIVE (NEGATIVE) 10/15/20 05:12 Urine Nitrite NEGATIVE (NEGATIVE) 10/15/20 05:12 Urine Bilirubin NEGATIVE (NEGATIVE) 10/15/20 05:12 Urine Urobilinogen NEGATIVE mg/dL (<2.0) 10/15/20 05:12 Ur Leukocyte Esterase NEGATIVE (NEGATIVE) 10/15/20 05:12 Urine WBC (Auto) 3 /HPF 10/15/20 05:12 Urine RBC (Auto) 0 /HPF 10/15/20 05:12 Squamous Epi Cells Auto 6 /HPF 10/15/20 05:12 Urine Mucus (Auto) RARE /LPF 10/15/20 05:12 Urine Ascorbic Acid NEGATIVE (NEGATIVE) 10/15/20 05:12 Urine Opiates Screen NEGATIVE 10/15/20 05:12 Urine Methadone Screen NEGATIVE 10/15/20 05:12 Ur Barbiturates Screen NEGATIVE 10/15/20 05:12 Ur Phencyclidine Scrn NEGATIVE 10/15/20 05:12 Ur Amphetamines Screen NEGATIVE 10/15/20 05:12 U Benzodiazepines Scrn NEGATIVE 10/15/20 05:12 Urine Cocaine Screen NEGATIVE 10/15/20 05:12 U Marijuana (THC) Screen NEGATIVE 10/15/20 05:12 COVID-19 Source See comment 10/11/20 16:20 COVID-19 ([place]) Not Detected (Not Detect) 10/11/20 16:20 Blood Type O POSITIVE 10/15/20 05:45 Blood Type Confirm O POSITIVE 10/15/20 05:45 Antibody Screen NEGATIVE 10/15/20 05:45 Crossmatch See Detail 10/15/20 05:45 Plan Health Concerns: Iron rich foods, Vitamin and iron supplement, BP precautions reviewed Plan of Treatment: d/c home. F/up with [facility] in one week for BP and incision check Time Spent: Less than 30 Minutes
[2020-10-18] MEDS: PRENATAL VITAMIN W DHA CAPSULE PO SCH (10:41)
[2020-10-18] MEDS: DOCUSATE SODIUM 100 MG CAPSULE PO SCH (10:41)
[2020-10-18 11:33] VITALS: BP 134/82
== END 2020-10-18 12:20 | disposition home or self-care (01) | DRG 788 ==
LOC: 2S 04:53 → 2N 05:01
PROVIDERS: ADMIT Student in an Organized Health Care Education/Training Program; ATTEND Student in an Organized Health Care Education/Training Program
PROC: 10D00Z1 Extraction of Products of Conception, Low, Open Approach (ICD-10-PCS; principal; 2020-10-15)
DX: O10.92 Unspecified pre-existing hypertension complicating childbirth (principal); O34.211 Maternal care for low transverse scar from previous cesarean delivery; O40.3XX0 Polyhydramnios, third trimester, not applicable or unspecified; O34.13 Maternal care for benign tumor of corpus uteri, third trimester; Z37.0 Single live birth; O99.02 Anemia complicating childbirth; D64.9 Anemia, unspecified; Z3A.38 38 weeks gestation of pregnancy; O99.824 Streptococcus B carrier state complicating childbirth; D25.2 Subserosal leiomyoma of uterus; O34.593 Maternal care for other abnormalities of gravid uterus, third trimester; Z20.828 Contact with and (suspected) exposure to other viral communicable diseases
CPT/HCPCS: 1961; 36415; 59025; 80307; 81001; 85027; 86850; 86900; 86901; 86920; 87635; 88307; 94760; 94799; C9803; J0131; J0690; J1170; J1885; J2210; J2250; J2370; J2405; J2590; J3010; J3490